=== PATIENT | female | born 2000 | race Caucasian/White ===

== ENCOUNTER 2023-11-17 17:50 | Emergency (ER) | payer BC ==
[2023-11-17 18:08] VITALS: BP 133/87; O2SAT 99
--- NOTE | 2023-11-17 18:08 | ED Physician Documentation ---
PD HPI HEENT - Stated complaint Stated Complaint: SORE/RT EAR PX - Chief complaint Chief Complaint: Heent - History obtained from History obtained from: Patient - Additional information Additional information: Sick for 2 days with URI symptoms cough and sore throat with low-grade fevers but today with severe throbbing left ear pain. No history of frequent UTIs. No possibility of . PD PAST MEDICAL HISTORY - Past Medical History Past Medical History: No - Past Surgical History Past Surgical History: No - Present Medications Home Medications: Ambulatory Orders Medication Instructions Recorded Confirmed Amoxicillin 2 tab PO TID #30 cap 11/17/23 FLUoxetine [PROzac] 30 mg PO DAILY 11/17/23 11/17/23 - Allergies Allergies/Adverse Reactions: Allergies Allergy/AdvReac Type Severity Reaction Status Date / Time No Known Drug Allergies Allergy Verified 11/17/23 18:03 - Social History Does the pt smoke?: No Smoking Status: Never smoker Does the pt drink ETOH?: No Does the pt have substance abuse?: No PD ED PE NORMAL - Vitals Vital signs reviewed: Yes - General General: Alert and oriented X 3, No acute distress - HEENT HEENT: Other (Severe right otitis media without perforation, left TM normal. Tonsillar pillars mildly red but no exudates or swelling.) - Neck Neck: Supple, no meningeal sign, No bony TTP - Respiratory Respiratory: No respiratory distress Results - Vitals Vitals: Vital Signs - 24 hr 11/17/23 17:57 Temperature 36.5 C Heart Rate 99 Respiratory 18 Rate Blood Pressure 133/87 H O2 Saturation 99 Oxygen O2 Source Room air Departure - Departure Disposition: 01 Home, Self Care Clinical Impression: ROM (right otitis media) Condition: Good Record reviewed to determine appropriate education?: Yes Instructions: ED Otitis Media Acute Adult Prescriptions: Amoxicillin 2 tab PO TID #30 cap Comments: Drink plenty of fluids. Ibuprofen, 800 mg every 6 hours as needed for pain. Return if worse. Follow-up with your doctor in a week for recheck.
[2023-11-17] MEDS: AMOXICILLIN 250 MG CAPSULE PO STA (18:13)
[2023-11-17] MEDS: HYDROcod/ACETAM 5/325 MG TABLET PO STA (18:13)
== END 2023-11-17 18:20 | disposition home or self-care (01) ==
LOC: ED 17:50
DX: H66.91 Otitis media, unspecified, right ear (principal)
CPT/HCPCS: 99283; A9270

== ENCOUNTER 2024-01-03 04:14 | Emergency (ER) | payer BC ==
[2024-01-03 04:29] VITALS: BP 124/89; O2SAT 98
--- NOTE | 2024-01-03 04:30 | ED Physician Documentation ---
PD HPI FEMALE - Stated complaint Stated Complaint: GI - Chief complaint Chief Complaint: Abd Pain - History obtained from History obtained from: Patient - Additional information Additional information: Patient c/o vaginal pain x 3 days with pruritis. Denies vaginal discharge. Has not had these symptoms before. She is sexually active with one partner; both she and her partner (who is in the ED at patient's bedside) say they had never had sex with anyone else Review of Systems Constitutional: denies: Fever, Chills, Sweats GI: denies: Abdominal Pain : denies: Dysuria, Frequency PD PAST MEDICAL HISTORY - Past Medical History Past Medical History: No - Past Surgical History Past Surgical History: No - Present Medications Home Medications: Ambulatory Orders Medication Instructions Recorded Confirmed Amoxicillin 2 tab PO TID #30 cap 11/17/23 FLUoxetine [PROzac] 30 mg PO DAILY 11/17/23 11/17/23 Oxycodone HCl/Acetaminophen 1 - 2 each PO Q6H PRN #14 tablet 01/03/24 [Percocet 5-325 mg Tablet] Sulfamethox/Trimeth 800/160 1 each PO BID #14 tablet 01/03/24 [Bactrim Ds 800/160] - Allergies Allergies/Adverse Reactions: Allergies Allergy/AdvReac Type Severity Reaction Status Date / Time No Known Drug Allergies Allergy Verified 11/17/23 18:03 - Social History Does the pt smoke?: No Smoking Status: Never smoker Does the pt drink ETOH?: No Does the pt have substance abuse?: No PD ED PE NORMAL - Vitals Vital signs reviewed: Yes - General General: Alert and oriented X 3, No acute distress, Well developed/nourished - Abdomen Abdomen: Soft, Non tender PD ED PE EXPANDED - Female Female : Guest Advisor present (WADE Forman) Female visual: 1 - abscess Results - Vitals Vitals: Vital Signs - 24 hr 01/03/24 04:19 Temperature 36.5 C Heart Rate 158 H Respiratory 18 Rate Blood Pressure 124/89 H O2 Saturation 98 Oxygen O2 Source Room air - Labs Labs: Microbiology 01/03/24 06:30 Wound Culture - Preliminary Abscess Procedures - Abscess I&D (location) right Preparation: Chlorhexadine, Lidocaine 1% Incision: Incised with scalpel, Purulent drainage, Loculations broken, Culture obtained Other: Pt tolerated well, Antibiotic prescribed, Other (word catheter placed) PD Medical Decision Making - ED course Complexity details: considered differential, d/w patient ED course: I+D of large bartholin's abscess, word catheter placed. Rx bactrim and percocet. Return precautions reviewed. I discussed this case with Dr. Aleman (on-call tow feeder for [facility]) who can see patient for follow-up. Departure - Departure Disposition: Home, Self Care Clinical Impression: Abscess of Bartholin gland Condition: Good Instructions: ED Bartholins Cyst IandD Follow-Up: Ted Aleman MD [Provider Admit Priv/Credential] - Prescriptions: Sulfamethox/Trimeth 800/160 [Bactrim Ds 800/160] 1 each PO BID #14 tablet Oxycodone HCl/Acetaminophen [Percocet 5-325 mg Tablet] 1 - 2 each PO Q6H PRN #14 tablet PRN Reason: pain Comments: I have electronically submitted prescriptions for Percocet (narcotic/opiate pain medication) and Bactrim DS (antibiotic) to the [facility] in [place]. You can use ibuprofen (Advil, Motrin) per label instructions for pain, and the percocet for pain not controlled with ibuprofen. Percocet has acetaminophen as one of its ingredients; do not use any acetaminophen (Tylenol) or acetaminophen- containing products within 6 hours of Percocet. As we discussed, I inserted a very small, rubber catheter into the abscess cavity through the incision. You will need to have this taken out in 2-3 weeks; removal of the catheter is a simple procedure that can be done in the office of an CHIEF NUCLEAR MEDICINE TECHNOLOGIST. I discussed your case with the on-call CHIEF NUCLEAR MEDICINE TECHNOLOGIST (Dr. Aleman), and she (or one of her colleagues) can reevaluate you and remove the catheter. I recommend that you contact the office tomorrow when they are next open to arrange for a reevaluation appointment within the next 5 to 7 days. On that visit, they can advise you as to when you should return to have the catheter removed (typically 2-3 weeks after the catheter was placed). Dr. Aleman's contact information (office address, phone number) are provided on these discharge sheets I am prescribing a short course of narcotic pain medication for you. These are potentially dangerous and addictive medications that should be used carefully. These medications may constipate you. Take an [id number] stool softener (docusate) twice daily with plenty of water while taking these medications. If you go 24 hours without a bowel movement, take [id number] miralax, per package instructions. Do not drink or drive while taking these medications. If you received narcotic or sedating medications while in the emergency department, do not drive for 24 hours. Store this medication in a safe, secure place and out of reach of children. It is a violation of federal law to give or sell this medication to another person or to use in a manner other than prescribed. The ED will not refill narcotic prescriptions, including prescriptions lost or stolen. To dispose of unwanted medications: 1. [facility] Department [facility] at [address] in [place] has a medication drop box. They accept prescription medications (in pill form) Thursday through Thursday 9:00 a.m. to 5:00 p.m. 2. [facility] accepts prescription medications (in pill form only) for disposal year round. Call for more information. 3. Contact the [facility] for the next [facility] sponsored prescription drug collection event. , [phone], or [phone]; Discharge Date/Time: 01/03/24 07:05
[2024-01-03] MEDS: HYDROmorphone 1 MG/ML CARPUJECT IM STA (05:51)
[2024-01-03] MEDS: KETOROLAC 60 MG/2 ML VIAL IM STA (05:52)
[2024-01-03] MEDS: LIDOCAINE 1% 2 ML VIAL SUBQ STA (05:52)
[2024-01-03] MEDS: SULFAMETH/TRIMETH DS 800/160 MG TABLET PO STA (07:02)
--- NOTE | 2024-01-09 14:05 | ED Physician Documentation ---
ED Addendum - Addendum Addendum: 01/09/24 14:03 Patient's wound culture came back today positive for skin maciej along with brevundimonas diminuta. The patient had a follow-up visit with gynecology on 01/07/2024, I reviewed this visit, she does not have any further erythema or induration, no cellulitis, only having minimal pain, suspect that this does not need an antibiotic change at this point. Appears to have resolved with drainage. Patient will finish her current antibiotics.
== END 2024-01-03 07:05 | disposition home or self-care (01) ==
LOC: ED 04:14
DX: N75.1 Abscess of Bartholin's gland (principal); B71.0 Hymenolepiasis
CPT/HCPCS: 56420; 87070; 87077; 87181; 87205; 96372; 99283; A9270; J1170